=== PATIENT | male | born 1950 | race Caucasian/White ===

== ENCOUNTER 2019-12-12 09:55 | Observation (INO) | payer MEDICARE, OTHER ==
[~2019-12-12] VITALS: Ht 172.7 cm; Wt 83.0 kg
[2019-12-12] VITALS (11 sets, daily range): BP systolic 113–169; BP diastolic 59–94; PULSE 45–80; TEMP 97.7–98.7
--- NOTE | 2019-12-12 10:10 | NUR ---
PATIENT IS A DIRECT ADMIT INTO ROOM 343 FROM UROLOGY OFFICE. PATIENT ADMITED WITH ORR TO DD. NOTED MOD AMOUNTS OF PINK, BLOODY URINE WITH CLOTS NOTED. STARTED 20 GAUGE IV, ON SECOND ATTEMPT INTO LEFT WRIST. IV FLUIDS INFUSING VIA PUMP. PATIENT REPORTS HE LAST ATE/DRANK AT 0700. CURRENTLY NPO FOR SURGERY LATER TODAY, SEE ORDERS. HEAD TO TOE ASSESSMENT WNL. ORIENTED TO ROOM. CALL LIGHT IN REACH. NO OTHER NEEDS.
--- NOTE | 2019-12-12 10:43 | NUR ---
ANESTHESIA AT BEDSIDE.
[2019-12-12] MEDS ORDERED: CIPRO 500MG TA500 MG PO (12:25)
[2019-12-12] MEDS ORDERED: NORVASC 10MG10 MG PO (12:25)
[2019-12-12] MEDS ORDERED: STOOL SOFTENER100 M2 PO (12:26)
[2019-12-12] MEDS ORDERED: COZAAR 50MG50 MG/TAB PO (12:26)
[2019-12-12] MEDS ORDERED: FISH OIL1000 MG PO (12:27)
[2019-12-12] MEDS ORDERED: ASPIRIN 81M81 MG/TA2 PO (12:28)
[2019-12-12] MEDS ORDERED: B-121000 MCG PO (12:28)
[2019-12-12] MEDS ORDERED: MULTI VITAMINS1 TAB PO (12:28)
--- NOTE | 2019-12-12 14:00 | NUR ---
PATIENT GOING DOWN TO OR. CONSENT ON CHART.
--- NOTE | 2019-12-12 16:00 | NUR ---
PATIENT BACK IN ROOM POST OP CYSTO. A&O. VSS. DENIES PAIN. PATIENT IS UNABLE TO MOVE BLE DUE TO SPINAL. ORR TO DD WITH CLEAR YELLOW URINE NOTED. IV FLUIDS INFUSING INTO LEFT WRIST. HEAD TO TOE ASSESSMENT WNL. PATIENT REPORTS HE IS HUNGRY. GAVE SNACKS AND WATER. NO C/O N/V. CALL LIGHT IN REACH.
--- NOTE | 2019-12-12 19:08 | NUR ---
PATIENT REPORTS STILL HAS SOME LOWER ABD DISCOMFORT THAT PATIENT IS ABLE TO TOLERATE AT THIS TIME. PATIENT RESTING IN BED DURING CHANGE OF SHIFT REPORT FROM DAY SHIFT NURSEAARON AND STUDENT NURSE GIDEON. NO FURTHER QUESTIONS REPORTED.
--- NOTE | 2019-12-12 20:30 | NUR ---
PATIENT DANGLED AND STOOD AT SIDE OF BED, DENIED ANY DISCOMFORT WHEN MOVEMENT, OBSERVED FAINT PINK COLOR TO URINE OUTPUT IN CATHETER DD TUBING WITH NO BLOOD CLOTS OBSERVED.
--- NOTE | 2019-12-12 23:47 | NUR ---
PATIENT SLEEPING, DOES NOT AWAKEN WHEN DOOR TO ROOM OPENED BY STAFF. OBSERVED BREATHING NONLABORED AND EVEN. ORR DRAINING CLEAR YELLOW.
--- NOTE | 2019-12-13 02:55 | NUR ---
PATIENT SLEEPING, DOES NOT AWAKEN WHEN DOOR TO ROOM IS OPENED BY STAFF. OBSERVED BREATHING EVEN AND NONLABORED. ORR DRAINING CLEAR YELLOW.
[2019-12-13 03:56] VITALS: BP 122/68; PULSE 52; TEMP 98.1
--- NOTE | 2019-12-13 07:24 | NUR ---
Patient resting in bed during change of shift report given to day shift nurse, Linnette and student nurse. Patient up independently in room with no complaints.
[2019-12-13 07:57] VITALS: BP 137/82; PULSE 51; TEMP 97.9
--- NOTE | 2019-12-13 08:00 | NUR ---
PT IS A&O*3. VSS. DENIES PAIN. PT ADMITTED ON 12/11 SINCE CYSTO W/ CLOT EVAC. PT WAS ON ORR WITH CLEAR PEACH COLORED URINE. ORR DISCONTINUED THIS MORNING AND PATIENT STARTEDON 6 BOTTLE ROUTINE. NO ABNORMAL FINDINGS ON HEAD TO TOE ASSESSMENT. PT IS EATING WELL. PT IS INDEPENDENT. IV ON LEFT FA TO INT. PATIENT PLANNING TO DISCHARGE HOME LATER TODAY IF CRITERIA MEET. CALL LIGHT IN REACH.
[2019-12-13 11:45] VITALS: BP 150/74; PULSE 63; TEMP 97.7
--- NOTE | 2019-12-13 12:51 | NUR ---
First visit from the pipe tester. No needs right now.
--- NOTE | 2019-12-13 13:05 | NUR ---
PATIENT DISCHARGING HOME VIA WC TO PERSONAL VEHICLE WHERE IS WAITING. GAVE DISCHARGE INSTRUCTIONS & F/U PHONE CALL. ANSWERED ALL QUESTIONS/CONCERNS. STUDENT NURSE DC'D IV SITE. PATIENT DISCHARGED.
--- NOTE | 2019-12-13 13:24 | NUR ---
The patient was obs and discharged before intake could be completed.
== END 2019-12-13 13:05 | disposition home or self-care (01) ==
LOC: SDCO 09:55 → SURG 09:56
PROVIDERS: ADMIT Urology
DX: N36.2 Urethral caruncle (principal); I10 Essential (primary) hypertension; Z79.82 Long term (current) use of aspirin; Z79.899 Other long term (current) drug therapy; Z87.891 Personal history of nicotine dependence; Z80.3 Family history of malignant neoplasm of breast; Z83.3 Family history of diabetes mellitus; Z82.49 Family history of ischemic heart disease and other diseases of the circulatory system; Z80.6 Family history of leukemia; Z80.8 Family history of malignant neoplasm of other organs or systems
CPT/HCPCS: A9284; G0378; J0690; J2250; J2704; J7030